=== PATIENT | male | born 2000 | race Caucasian/White ===

== ENCOUNTER 2019-09-15 13:12 | Emergency (ER) | payer MEDICAID ==
--- NOTE | 2019-09-15 14:51 | XRAY Report ---
Reason: injury Procedure Date: 09/15/2019 Accession Number: [id number] / [id number] Procedure: XR - Hand 3 View RT CPT Code: Final Report FULL RESULT: EXAM: RIGHT HAND RADIOGRAPHY EXAM DATE: 09/15/2019 01:55 PM. CLINICAL HISTORY: Injury. COMPARISON: None. TECHNIQUE: 3 views. FINDINGS: Bones: Normal. No fractures or bone lesions. Joints: Normal. No subluxations. Soft Tissues: Normal. No soft tissue swelling. IMPRESSION: Normal hand radiography. [facility]
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
[2019-09-15 15:42] VITALS: BP 133/67
== END 2019-09-15 15:42 | disposition home or self-care (01) ==
LOC: ED 13:12
DX: S60.221A Contusion of right hand, initial encounter (principal); W22.8XXA Striking against or struck by other objects, initial encounter
CPT/HCPCS: 99282; 99283